=== PATIENT | male | born 2000 | race Caucasian/White ===

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

== ENCOUNTER 2023-10-15 21:18 | Emergency (ER) | payer MEDICAID, OTHER ==
[~2023-10-15] VITALS: Ht 167.6 cm; Wt 82.0 kg
[2023-10-15] MEDS: MIDAZOLAM HCL 2 MG/2 ML VIAL IM ONE ×2 (22:25→23:28)
[2023-10-15] MEDS: HALOPERIDOL LACTATE 5MG/ML VIAL IM ONE ×2 (22:25→22:41)
[2023-10-15] MEDS: DIPHENHYDRAMINE 50MG/ML VIAL IM ONE ×2 (22:26→22:41)
[2023-10-15] MEDS: ZIPRASIDONE MESYLATE 20MG/VIAL IM ONE (22:41)
[2023-10-15 23:28] VITALS: O2SAT 98
[2023-10-15 23:31] LABS: ACETAMINOPHEN < 2 ug/mL (10-30); ALANINE AMINOTRANSFERASE 45 IU/L (10-49); ALBUMIN 4.5 g/dL (3.2-4.8); ASPARTATE AMINOTRANSFERASE 42 IU/L (<34); BASOPHILS % 0.6 % (0.0-2.0); BILIRUBIN TOTAL 0.6 mg/dL (0.1-1.0); CARBON DIOXIDE 17 mEq/L (21-32); CHLORIDE 106 mEq/L (98-107); EOSINOPHILS % 0.5 % (0.0-5.0); ETHANOL BLOOD 172 mg/dL (<10); GLUCOSE 83 mg/dL (70-105); HEMATOCRIT. 46.6 % (42.0-52.0); HEMOGLOBIN. 15.8 g/dL (14.0-18.0); LYMPHOCYTES % 27.3 % (20.0-50.0); MEAN CORPUSCULAR HEMOGLOBIN 32.5 pg (28.0-32.0); MEAN CORPUSCULAR HGB CONC 33.9 g/dL (31.0-37.0); MEAN CORPUSCULAR VOLUME 95.9 fL (80.0-94.0); MEAN PLATELET VOLUME 11.2 fl (7.4-10.4); MONOCYTES % 8.8 % (2.0-8.0); NEUTROPHILS % 62.8 % (40.0-76.0); PLATELET 183 x1000/uL (130-400); POTASSIUM 3.1 mEq/L (3.5-5.1); RED BLOOD CELL COUNT 4.86 mill/uL (4.7-6.1); RED CELL DISTRIBUTION WIDTH 13.6 % (11.6-14.6); SODIUM 141 mEq/L (136-145); UREA NITROGEN BLOOD 8 mg/dL (9-23)
[2023-10-16] MEDS: FLUOXETINE HCL 20MG CAPSULE PO SCH (09:36)
[2023-10-16] MEDS: RISPERIDONE 1MG TABLET PO SCH (09:36)
[2023-10-16 10:17] LABS: *AMPHETAMINES SCREEN URINE NEGATIVE (NEGATIVE); *BARBITURATES SCREEN URINE NEGATIVE (NEGATIVE); *BENZODIAZEPINES SCREEN URINE PRESUMPTIVE POSITIVE (NEGATIVE); *COCAINE SCREEN URINE NEGATIVE (NEGATIVE); ECSTASY MDMA SCREEN URINE NEGATIVE (NEGATIVE); METHADONE URINE SCREEN Neg (NEGATIVE); OPIATES URINE SCREEN NEGATIVE (NEGATIVE); PHENCYCLIDINE URINE SCREEN NEGATIVE (NEGATIVE)
[2023-10-16 14:51] LABS: CANNABINOID URINE SCREEN NEGATIVE (NEGATIVE)
[2023-10-16] MEDS: POTASSIUM CHLORIDE 20MEQ/PACKET PO NR (17:25)
[2023-10-16 18:34] VITALS: BP 115/71; PULSE 75; RESP 17; TEMP 98.7
== END 2023-10-16 19:06 ==
LOC: ER 21:18
DX: F10.129 Alcohol abuse with intoxication, unspecified (principal); R45.851 Suicidal ideations; J45.909 Unspecified asthma, uncomplicated; I10 Essential (primary) hypertension; Z20.822 Contact with and (suspected) exposure to COVID-19; Y90.6 Blood alcohol level of 120-199 mg/100 ml
CPT/HCPCS: 80053; 80307; 80329; 80320; 85025; 36415; 71045; 96372; 99285; 80305; 87426; J1200; J1630; J2250; J3486; G0480